=== PATIENT | female | born 1985 | race Caucasian/White ===

== ENCOUNTER → 2021-11-05 | Outpatient (CLI) | payer OTHER ==
[~2021-11-05] MED LIST: OMEP20TA63 PO; levothyroxine
== END ==
LOC: LAB 11:35
PROVIDERS: ATTEND Internal Medicine Gastroenterology
DX: Z01.812 Encounter for preprocedural laboratory examination (principal); Z20.822 Contact with and (suspected) exposure to COVID-19; K21.9 Gastro-esophageal reflux disease without esophagitis
CPT/HCPCS: U0003

== ENCOUNTER → 2021-11-09 | Day surgery (SDC) | payer OTHER ==
[~2021-11-09] MED LIST changes: +IPRATRPIUM/ALBUTEROL 0.5/2.5MG 3 ML NEBU. NEB PRN; +IV RINGERS SOLUTION,LACTATED 1,000 ML IV SCH; +LIDOCAINE 2% PF 5 ML VIAL. ONE; +MIDAZOLAM HCL PF 2 MG/2 ML VIAL. IV ONE; +ONDANSETRON PF 4 MG/2 ML VIAL. IV PRN; +PROPOFOL 10,000 MCG/ML (20ML) VIAL IV ONE
[2021-11-09 14:43] LABS: U PREG PATIENT NEGATIVE (NEG)
[2021-11-09 16:11] VITALS: BP 115/82
== END | disposition home or self-care (01) ==
LOC: SURG 13:25
PROVIDERS: ATTEND Internal Medicine Gastroenterology
DX: R12 Heartburn (principal); K21.9 Gastro-esophageal reflux disease without esophagitis; K31.89 Other diseases of stomach and duodenum; Z79.899 Other long term (current) drug therapy; Z98.890 Other specified postprocedural states
CPT/HCPCS: 43239; 81025; J2001; J2704

== ENCOUNTER → 2021-11-29 | Outpatient (CLI) | payer OTHER ==
[2021-11-09 16:11] VITALS: BP 115/82
[~2021-11-29] MED LIST changes: -IPRATRPIUM/ALBUTEROL 0.5/2.5MG 3 ML NEBU. NEB PRN; -IV RINGERS SOLUTION,LACTATED 1,000 ML IV SCH; -LIDOCAINE 2% PF 5 ML VIAL. ONE; -MIDAZOLAM HCL PF 2 MG/2 ML VIAL. IV ONE; -ONDANSETRON PF 4 MG/2 ML VIAL. IV PRN; -PROPOFOL 10,000 MCG/ML (20ML) VIAL IV ONE
--- NOTE | 2021-11-29 14:29 | RAD ---
Gastric Emptying Study 11/29/2021 Indication: Reason: GASTROESOPHAGEAL REFLUX DISEASE, ABDOMINAL BLOATING Procedure: Anterior and posterior projection static images are obtained over the stomach following or al administration of 2 mCi of 99 M technetium sulfur colloid in a solid meal (.Time points include an immediate baseline, and 1, 2, 3, and 4 hours post ingestion. Findings: There is progressive emptying of the stomach on sequential images. Percentage retention at... One hour is 65% (normal 34.8-91%). Two hours 32% (normal 2.7-60%). Three hours 16% (normal 0.5-28%). Four hours 3% (normal 0-10%). Impression: Normal 4 hour protocol gastric emptying study. Consensus Recommendations for Gastric Emptying Scintigraphy: A Joint Report of the [employer] [place] [employer] and the Society of Nuclear Medicine: J. Nucl. Med. Technol. January 26 vol. 36 no. 1 44-54 Grading for severity of delayed GE based on the 4-h value: grade 1 (mild): 11?20% retention at 4 h grade 2 (moderate): 21?35% retention at 4 h grade 3 (severe): 36?50% retention at 4 h grade 4 (very severe): >50% retention at 4 h. Electronically signed by: Peyman Levine MD (11/29/2021 2:26 PM) [id number]
== END ==
LOC: NM 08:06
PROVIDERS: ATTEND Internal Medicine Gastroenterology
DX: K21.9 Gastro-esophageal reflux disease without esophagitis (principal); R14.0 Abdominal distension (gaseous)
CPT/HCPCS: 78264; A9541